=== PATIENT | male | born 1975 | race Hispanic/Latino ===

== ENCOUNTER 2019-06-23 13:23 | Emergency (ER) | payer OTHER ==
[~2019-06-23] VITALS: Ht 172.7 cm; Wt 83.9 kg
[2019-06-23] MEDS ORDERED: HYDROCODONE/APAP 10MG-325MG TAB PO ONE (14:00)
--- NOTE | 2019-06-23 14:19 | Diagnostic Imaging Report ---
Shoulder limited CPT code: 42537 Indication: Trauma. Technique: Internal and external images of the right shoulder obtained without comparison. Findings: There is AC joint separation with 9 mm of superior migration of the distal clavicle relative to the acromion. No fracture. Glenohumeral joint is normal in morphology. No fracture or dislocation of the humerus or scapula. Visualized chest is unremarkable. IMPRESSION: AC joint separation with superior migration of the distal clavicular head. No fracture. Signed by: Dr. Janee Cochran MD on 06/23/2019 2:16 PM
--- NOTE | 2019-06-23 14:21 | Diagnostic Imaging Report ---
Clavicle CPT code: 52214 INDICATION: Trauma TECHNIQUE: 2 images of the right clavicle obtained. COMPARISON: Shoulder series obtained the same time FINDINGS: No fracture. There is superior displacement of the distal clavicle relative to the acromion by proximally 9 mm. Glenohumeral joint is normally aligned. No fractures of the proximal humerus, scapula, or visualized portion of the chest. IMPRESSION: Acromioclavicular dislocation as described above. Signed by: Dr. Janee Cochran MD on 06/23/2019 2:18 PM
[2019-06-23 14:54] VITALS: BP 124/76
== END 2019-06-23 14:58 | disposition home or self-care (01) ==
LOC: ER 13:23
DX: M25.511 Pain in right shoulder (principal); S43.101A Unspecified dislocation of right acromioclavicular joint, initial encounter; W18.30XA Fall on same level, unspecified, initial encounter
CPT/HCPCS: 99284